=== PATIENT | female | born 1965 | race Caucasian/White ===

== ENCOUNTER 2018-02-26 21:34 | Emergency (ER) | payer SELFPAY ==
[~2018-02-26] VITALS: Ht 175.3 cm; Wt 72.6 kg
[2018-02-26 21:42] VITALS: BP 155/93
[2018-02-26] MEDS ORDERED: LIDOCAINE 1% PF 30 ML VIAL. INJ ONE (22:30)
[2018-02-26] MEDS ORDERED: MORPHINE SULFATE 10 MG/ML VIAL. IM ONE (22:30)
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
== END 2018-02-27 00:05 | disposition home or self-care (01) ==
LOC: EEVIPCON 21:34 → ER 21:34
DX: S01.312A Laceration without foreign body of left ear, initial encounter (principal); F17.200 Nicotine dependence, unspecified, uncomplicated; Z98.890 Other specified postprocedural states; Y08.89XA Assault by other specified means, initial encounter; Y93.89 Activity, other specified; Y92.89 Other specified places as the place of occurrence of the external cause; Y99.8 Other external cause status
CPT/HCPCS: 12013; 99283

== ENCOUNTER 2021-08-22 19:11 | Emergency (ER) | payer OTHER | END 2021-08-23 00:01 | disposition left against medical advice (07) | LOC: ER 19:11 | DX: N39.0 Urinary tract infection, site not specified (principal); Z53.21 Procedure and treatment not carried out due to patient leaving prior to being seen by health care provider ==